=== PATIENT | female | born 1995 | race Caucasian/White ===

== ENCOUNTER 2022-01-22 14:41 | Outpatient (CLI) | payer BC ==
[2022-01-22 15:59] LABS: BHCG - Serum Negative (NEGATIVE); Pregs Control Background? CLEAR/WHITE (CLR/WHITE); Pregs Control Bar Appear? YES (CONTROL BAR)
== END 2022-01-22 14:42 | disposition home or self-care (01) ==
LOC: LABBT 14:41
PROVIDERS: ATTEND Orthopaedic Surgery
DX: Z01.812 Encounter for preprocedural laboratory examination (principal); T85.848A Pain due to other internal prosthetic devices, implants and grafts, initial encounter; Z20.822 Contact with and (suspected) exposure to COVID-19
CPT/HCPCS: 84703; 87811

== ENCOUNTER 2022-01-27 10:22 | Day surgery (SDC) | payer BC ==
[2022-01-23 11:32] VITALS: BMI 30.8
[2022-01-27] MEDS ORDERED: EPINEPHrine 1 MG/ML AMP ONE (12:18)
[2022-01-27] MEDS ORDERED: Bupivacaine PF 0.5% 30 ML VIAL ONE (12:18)
[2022-01-27] MEDS ORDERED: Lidocaine 1% (PF) 30 ML VIAL ONE (12:18)
[2022-01-27] MEDS ORDERED: CEFAZOLIN 2 GM VIAL ONE (12:29)
[2022-01-27] MEDS ORDERED: Sodium Chloride 0.9% 100 ML ONE (12:29)
[2022-01-27] MEDS ORDERED: Midazolam HCl 2 mg/2 ml Vial ONE (13:06)
[2022-01-27] MEDS ORDERED: fentaNYL Citrate/PF 100 MCG/2 ML SYRINGE ONE (13:06)
[2022-01-27] MEDS ORDERED: PROPOFOL 200 MG/20 ML VIAL ONE (13:08)
[2022-01-27] MEDS ORDERED: Lidocaine 1% PF 5 ML VIAL ONE (13:08)
[2022-01-27] MEDS ORDERED: HYDROmorphone 2 MG/ML VIAL ONE (14:03)
[2022-01-27] MEDS ORDERED: Promethazine HCl 25 MG/ML VIAL ONE (15:07)
[2022-01-27] MEDS ORDERED: Ondansetron PF 4 MG/2 ML Vial ONE (15:08)
[2022-01-27] MEDS ORDERED: HYDROcodone/Acetaminophen 5/325 mg Tablet ONE (16:01)
== END 2022-01-27 17:30 | disposition home or self-care (01) ==
LOC: SDC 10:22
PROVIDERS: ATTEND Orthopaedic Surgery
PROC: 0QPD04Z Removal of Internal Fixation Device from Right Patella, Open Approach (ICD-10-PCS; principal; 2022-01-27)
DX: T84.116A Breakdown (mechanical) of internal fixation device of bone of right lower leg, initial encounter (principal); Z79.899 Other long term (current) drug therapy; Z88.6 Allergy status to analgesic agent; Y79.3 Surgical instruments, materials and orthopedic devices (including sutures) associated with adverse incidents
CPT/HCPCS: 76000; J0171; J0690; J1170; J2001; J2250; J2405; J2550; J2704; J3490; S0020